=== PATIENT | female | born 1960 | race Caucasian/White ===

== ENCOUNTER 2018-02-07 09:32 | Observation (INO) | payer BC, SELFPAY ==
[2018-02-07] VITALS (20 sets, daily range): BP systolic 101–164; BP diastolic 44–96; PULSE 47–94; RESP 12–20; TEMP 36.2–37; O2SAT 94–100; BMI 23.3
--- NOTE | 2018-02-07 | PATH_ITS ---
[facility] Accession Number: [id number] . 01 Material submitted: . BILATERAL TUBES AND OVARIES . 02 Diagnosis: Bilateral Ovaries and Fallopian Tubes, Bilateral Salpingo-Oophorectomy: Low grade invasive serous carcinoma, Left Ovary Serous borderline tumor, bilateral ovaries. Hemorrhagic right ovary, consistent with torsion. Please see CAP Summary Data below. . PROCEDURE: Bilateral salpingo-oophorectomy. TUMOR SITE: Left Ovary. . LEFT OVARY: SPECIMEN INTEGRITY OF LEFT OVARY: Capsule intact. SPECIMEN INTEGRITY OF LEFT FALLOPIAN TUBE: Serosa intact. OVARIAN SURFACE INVOLVEMENT: Present. FALLOPIAN TUBE SURFACE INVOLVEMENT: Absent. TUMOR SIZE: Greatest dimension: 5.5 cm HISTOLOGIC TYPE: Serous carcinoma. HISTOLOGIC GRADE: Low grade. IMPLANTS: Not identified. OTHER TISSUE/ORGAN INVOLVEMENT: See RIGHT OVARY below. PERITONEAL/ASCITIC FLUID: Negative for malignancy, per report ([id number]). REGIONAL LYMPH NODES: No lymph nodes submitted. PATHOLOGIC STAGE CLASSIFICATION (AJCC 8th ed., 2017) Primary Tumor: pT2a Regional Lymph Nodes: pNX FIGO Stage: IIA . RIGHT OVARY: SPECIMEN INTEGRITY OF RIGHT OVARY: Capsule intact. SPECIMEN INTEGRITY OF RIGHT FALLOPIAN TUBE: Serosa intact. OVARIAN SURFACE INVOLVEMENT: Not involved. FALLOPIAN TUBE SURFACE INVOLVEMENT: Not involved. TUMOR SIZE: Greatest dimension: 11.5 cm HISTOLOGIC TYPE: Serous borderline tumor. IMPLANTS: Not identified. . ADDITIONAL FINDINGS: Right ovarian torsion. Endosalpingiosis (Right fallopian tube). L/02/13/2018 . 02 Comment: As part of routine machined parts quality inspector, this case was also reviewed by Dr. Hall who agrees with the diagnoses. Dr. Lyles discussed the results with Dr. Jose on 02/13/2018. . 02 Electronically signed: . Magi Lyles MD, Pathologist NPI- [id number] . 01 Gross description: . Received in formalin, labeled 2-Bilateral tubes / ovaries, are two ovaries (ovary #1-11.5 x 8.0 x 7.0 cm; ovary #2-5.5 x 4.2 x 2.3 cm) with attached fimbriated fallopian tubes (tube #1: length-5.2 cm, diameter-0.3 cm; tube #2: length-5.5 cm, diameter-0.3 cm). Ovary #1 is multi-cystic and contains yellow-orange clear gelatinous material and fluid. A scant amount of normal appearing ovarian parenchyma is identified. The serosa is smooth and shiny and purple/maroon in color. Ovary #2 is jaime-maldonado and the serosa has a focally rough irregular area (inked blue). The cut surface has maldonado-white solid areas and is partially cystic containing bright yellow clear gelatinous material and dark brown fluid. The fallopian tubes have a maldonado smooth and shiny serosa and maldonado unremarkable lumens. Section code: (A1, A2) ovary #1, serially sectioned, traffic representative; (A3, A4) ovary #2, serially sectioned, traffic representative; (A5) fallopian tube #1, serially sectioned, traffic representative; (A6) fimbria #1, bivalved, entirely submitted; (A7) fallopian tube #2, serially sectioned, traffic representative; (A8) fimbria #2, bivalved, entirely submitted; (A9-A11) Additional traffic representative sections of Ovary #2/Left Ovary, with irregular inked surface sampled in A9 and A10; (A12-A16) Additional traffic representative sections of Ovary #1/Right Ovary. Note: Per Dr. Jose, the larger hemorrhagic ovary is Right and the Smaller ovary is left. Note: Per the requisition, peritoneal fluid was also submitted to Cytology for analysis. ([id number]) /[facility] . 02 Pathologist provided ICD-10: C56.2 . 02 CPT . 450820 Performed at: 01 [facility] [address] [facility], [place], [place] [id number] MD Edgar Caicedo MD Phone: [phone] Performed at: 02 [facility] [address] [place] [id number] MD Keaton Yoo MD Phone: [phone]
[2018-02-07 09:53] LABS: Add Manual Diff / Slide Review NO; Basophils Percent Auto 1.2 % (0-2); Eosinophils Percent Auto 1.7 % (2-4); Hematocrit 43.2 % (36-46); Hemoglobin 14.7 g/dL (12.0-16.0); Lymphocytes Percent Auto 42.8 % (25-40); Mean Corpuscular Hemoglobin 31.2 PG (26-34); Mean Corpuscular Volume 91.7 fL (80-100); Neutrophils Absolute Auto 3400 /uL (3000-5900); Neutrophils Percent Auto 45.3 % (50-75); Platelet Count 330 X10^3/uL (150-400); Red Blood Cell Count 4.72 X10^6/uL (4.0-5.2); White Blood Cell Count 7.5 X10^3/uL (4.5-11.0)
--- NOTE | 2018-02-07 09:55 | DI.RAD.S_ITS ---
PROCEDURE: XR ACUTE ABDOMEN SERIES INDICATIONS: Abdominal pain TECHNIQUE: One view chest and two views of the abdomen were acquired. COMPARISON: None. FINDINGS: Surgical changes and devices: None. Chest: Lungs are clear. Heart size is normal. No pleural effusions. No pneumoperitoneum. Abdomen: Bowel gas pattern is normal. No suspicious calcifications. Visualized solid organ contours appear normal. Bones: No suspicious bony lesions. IMPRESSION: Source of abdominal pain is not seen. Dictated by: Shun Lenz M.D. on 02/07/2018 at 10:09 Approved by: Shun Lenz M.D. on 02/07/2018 at 10:25
[2018-02-07] MEDS: ONDANSETRON 4 MG/2 ML INJ IV (10:00)
[2018-02-07] MEDS: SODIUM CHLORIDE 0.9% 1,000 ML 150 ML IV ×2 (10:00→11:59)
[2018-02-07 10:03] LABS: Alanine Aminotransferase 78 IU/L (9-52); Albumin 4.7 g/dL (3.5-5.0); Albumin Globulin Ratio 1.7 (1.0-2.8); Alkaline Phosphatase 54 U/L (38-126); Aspartate Aminotransferase 52 IU/L (14-36); BUN Creatinine Ratio 21.3 (6-22); Bilirubin Total 0.9 mg/dL (0.2-1.3); Blood Urea Nitrogen 17 mg/dL (7-17); Calcium 9.4 mg/dL (8.4-10.2); Carbon Dioxide 25 mmol/L (22-32); Chloride 105 mmol/L (98-107); Estimated Glomerular Filt Rate > 60.0 mL/min (>60); Globulin 2.8 g/dL (1.7-4.1); Glucose 114 mg/dL (70-100); HEMOLYSIS 36 (0-50); Lipase 152 U/L (23-300); Potassium 3.5 mmol/L (3.4-5.1); Sodium 143 mmol/L (137-145); Total Protein 7.5 g/dL (6.3-8.2)
--- NOTE | 2018-02-07 10:13 | ED.ABDPAIN ---
HPI - Abdominal Pain General Chief Complaint: Abdominal Pain Stated Complaint: abdominal pain Time Seen by Provider: 02/07/18 09:33 Source: patient and family Mode of arrival: ambulatory Limitations: no limitations History of Present Illness HPI narrative: Patient presents to the emergency department with a chief complaint of severe right lower quadrant pain that started about 1 hr prior to arrival. She states it is radiated some down into her groin. She denies provocation or palliation. She denies any history of the same. MD complaint: abdominal pain Onset (ago): minute(s) Pain Consistency: constant Location: RLQ Severity: severe Severity scale (1-10): 10 Quality: stabbing Radiation: R flank Relieving factors: nothing Exacerbating factors: nothing Associated symptoms: nausea and vomiting Related Data Home Medications Medication Instructions Recorded Confirmed ondansetron [Zofran ODT] 4 mg SUBLINGUAL BEDTIME PRN 02/07/18 sumatriptan PRN 02/07/18 zolpidem [Ambien] PRN 02/07/18 Allergies Allergy/AdvReac Type Severity Reaction Status Date / Time amoxicillin [AMOXICILLIN] Allergy Unknown Verified 02/07/18 10:11 Sulfa (Sulfonamide Allergy Verified 02/07/18 09:45 Antibiotics) Review of Systems Review of Systems All systems reviewed & are unremarkable except as noted in HPI and below Constitutional Denies chills, Denies fever(s), Denies lethargy and Denies weakness Eyes Denies change in vision, Denies eye discharge, Denies irritation and Denies loss of vision ENT Ears, Nose, Mouth, and Throat: Denies change in voice, Denies neck pain and Denies sore throat Cardiovascular Denies chest pain, Denies irregular heart rhythm, Denies lightheadedness, Denies palpitations, Denies dyspnea, Denies dyspnea on exertion and Denies orthopnea Respiratory Denies cough, Denies dyspnea, Denies dyspnea on exertion and Denies wheezing Gastrointestinal Gastrointestinal: Reports abdominal pain, Denies change in bowel habits, Denies diarrhea, Reports nausea and Reports vomiting Genitourinary Denies hematuria, Denies flank pain, Denies urinary incontinence and Denies urinary urgency Musculoskeletal Denies neck pain Integumentary/Breasts Denies pruritus, Denies erythema, Denies rash and Denies wounds Neurologic Denies confusion, Denies loss of vision and Denies weakness Psychiatric Denies anxiety, Denies confusion, Denies depression, Denies homicidal ideation and Denies suicidal ideation Endocrine Denies palpitations Hematologic/Lymphatic Denies easy bruising Allergic/Immunologic Denies wheezing [facility] Medical History Diverticulitis large intestine (Acute) Surgical History H/O dilation and curettage (Acute) History of tonsillectomy (Acute) Social History household members: spouse Smoking Status: Never smoker Exam Narrative Exam Narrative: 49-year-old female obviously in pain, clutching her right lower quadrant Initial Vital Signs Initial Vital Signs: Vital Signs Temperature 98.6 F 02/07/18 09:42 Pulse Rate 65 02/07/18 09:42 Respiratory Rate 20 02/07/18 09:42 Blood Pressure 161/91 H 02/07/18 09:42 Pulse Oximetry 100 02/07/18 09:42 Const General: cooperative and well developed Nutritional Appearance: well nourished Orientation: alert, awake, oriented x3 and not confused HENMT Head: normocephalic and atraumatic Ears: external ears normal and TM's normal bilaterally Nose: external nose normal and No nasal discharge Face and sinus: sinuses nontender, face symmetric, no sinus tenderness and No dry mucous membranes Mouth: oral mucosae normal and moist mucous membranes Teeth and gingiva: dentition normal Throat: tonsils normal and uvula midline Eyes General: appearance normal, both eyes and all related structures Eyelids: eyelids normal Conjunctivae: conjunctivae normal Sclera: sclerae normal Pupils: PERRL EOM: EOM intact bilaterally Neck Neck: normal visual inspection, trachea midline, No lymphadenopathy, No midline deformity and No JVD Lymphatic: No lymphedema Chest Chest: normal inspection of the chest Resp Effort & Inspection: normal respiratory effort, able to speak in complete sentences, no respiratory distress and no use of accessory muscles Auscultation: clear to auscultation bilaterally, no rales, no rhonchi and no wheezes Cardio Rate: regular rate Rhythm: regular rhythm Heart Sounds: no click, no gallops, no murmurs and no rubs Pulses: normal peripheral pulses GI Inspection: non-distended Palpation: soft, no hepatosplenomegaly, No guarding, No pulsatile mass and No tender Auscultation: normal bowel sounds Other: Her pain is not reproducible with palpation Back/Spine/Pelvis Back: No CVA tenderness Cervical Spine: cervical ROM normal and No pain with cervical ROM Thoracic/Lumbar Spine: thoracic and lumbar spine normal to inspection Skin General: no rashes or lesions noted, No jaundice and No petechiae Neuro General: alert, oriented x3, gait normal and no focal motor deficits Speech: speech normal Extrem General: full ROM, no clubbing, cyanosis or edema, no pedal edema and no calf tenderness Psych Appearance: well kempt Mental Status: mental status grossly normal Attitude: cooperative Thought Content: normal and suicidality Judgment: judgment good Course Orders Ordered: ED Orders 02/07/18 09:45 Complete Blood Count AUTO DIFF Stat Comprehensive Metabolic Panel Stat Lipase Stat 02/07/18 09:55 XR acute abdomen series Stat 02/07/18 10:36 CT abdomen pelvis w con Stat 02/07/18 11:15 US pelvic complete Stat 02/07/18 12:30 Cancer Antigen 125 Stat Fentanyl (Sublimaze) 50 mcg IV Q5MIN YAHIR Stop: 02/12/18 12:01 Fentanyl (Sublimaze) 100 mcg IV Q5MIN PRN PRN Reason: Pain, Mild Hydromorphone HCl (Dilaudid) 1 mg IM Q5MIN PRN PRN Reason: Pain, Severe Hydroxyzine HCl (Vistaril) 25 mg IM PRN PRN PRN Reason: Pain, Mild Sodium Chloride (Normal Saline 0.9%) 1,000 mls @ 150 mls/hr IV CONT YAHIR Last Infusion: 02/07/18 11:23 Dose: 0 mls/hr Admin: 02/07/18 10:00 Dose: 150 mls/hr Sodium Chloride (Normal Saline 0.9%) 1,000 mls @ 150 mls/hr IV CONT YAHIR Last Admin: 02/07/18 11:59 Dose: 150 mls/hr Lactated Ringer's (Lactated Ringers) 1,000 mls @ 42 mls/hr IV CONT YAHIR Last Admin: 02/07/18 14:35 Dose: 42 mls/hr Infusion: 02/07/18 14:35 Dose: 42 mls/hr Admin: 02/07/18 12:37 Dose: 42 mls/hr Lactated Ringer's (Lactated Ringers) 1,000 mls @ 100 mls/hr IV CONT YAHIR Meperidine HCl (Demerol) 25 mg IV Q5MIN PRN PRN Reason: Pain and shivering Metoclopramide HCl (Reglan) 10 mg IV NOW PRN PRN Reason: Nausea And Vomiting Ondansetron HCl (Zofran) 4 mg IV Q4HR PRN PRN Reason: Nausea And Vomiting Last Admin: 02/07/18 10:00 Dose: 4 mg Ondansetron HCl (Zofran) 4 mg IV NOW PRN PRN Reason: Nausea And Vomiting Discontinued Medications Bupivacaine HCl/Epinephrine Bitart (Sensorcaine 0.5% W/ Epi (Pf)) 30 ml INJ NOW ONE Stop: 02/07/18 13:34 Last Admin: 02/07/18 13:34 Dose: 30 ml Hydromorphone HCl (Dilaudid) 1 mg IV NOW ONE Stop: 02/07/18 10:37 Last Admin: 02/07/18 10:42 Dose: 1 mg Hydromorphone HCl (Dilaudid) 1 mg IV NOW ONE Stop: 02/07/18 11:35 Famotidine (Pepcid) 20 mg in 50 mls @ 200 mls/hr IV NOW ONE Stop: 02/07/18 12:04 Last Infusion: 02/07/18 11:59 Dose: 0 mls/hr Admin: 02/07/18 11:57 Dose: 200 mls/hr Cefazolin Sodium/Dextrose (Ancef) 2 gm in 100 mls @ 200 mls/hr IV NOW ONE Stop: 02/07/18 12:49 Last Infusion: 02/07/18 12:50 Dose: 0 mls/hr Admin: 02/07/18 12:36 Dose: 200 mls/hr Ketorolac Tromethamine (Toradol) 30 mg IV NOW ONE Stop: 02/07/18 10:14 Last Admin: 02/07/18 10:21 Dose: 30 mg Lidocaine HCl (Xylocaine 2%) 4.8 ml 0.075 ml/kg (4.8 ml) IV NOW ONE Stop: 02/07/18 09:59 Last Admin: 02/07/18 10:16 Dose: 4.8 ml Metoclopramide HCl (Reglan) 10 mg IV NOW ONE Stop: 02/07/18 11:51 Last Admin: 02/07/18 11:57 Dose: 10 mg Reevaluation(s) Reevaluation #1: No improvement after Toradol, lidocaine drip ordered Time: 10:15 Reevaluation #2: No improvement after lidocaine drip. X-ray and labs normal. CT and Dilaudid ordered Time: 10:41 Consultations Consultation #1: Called to Dr. Jose with [facility] immediately upon receipt of CT findings for fear of possible torsion. Ultrasound is in the room. Dr. Jose is sending anesthesia down for preop Time: 11:33 Vital Signs - 8 hr 02/07/18 09:42 02/07/18 10:41 02/07/18 11:00 Temperature 98.6 F Pulse Rate 65 60 47 L Respiratory Rate 20 16 Blood Pressure 161/91 H Blood Pressure [Left Arm] 150/88 H 164/85 H Pulse Oximetry 100 100 97 02/07/18 11:44 02/07/18 12:00 02/07/18 12:01 Temperature Pulse Rate 56 L 49 L 57 L Respiratory Rate 16 18 Blood Pressure Blood Pressure [Left Arm] 148/96 H 148/68 H 148/68 H Pulse Oximetry 100 96 98 02/07/18 12:24 Temperature 97.5 F L Pulse Rate 94 H Respiratory Rate Blood Pressure 155/84 H Blood Pressure [Left Arm] Pulse Oximetry 94 MDM - Abdominal Pain Differential Diagnosis Differential diagnosis: Likely abdominal pain, calculus of kidney, constipation and small bowel obstruction Medical Records Attestation: I reviewed the patient's medical records. Lab Data Attestation: I reviewed the patient's lab results. Result diagrams: 02/07/18 09:45 02/07/18 09:45 Lab Results 02/07/18 02/07/18 02/07/18 Range/Units 09:45 09:45 12:30 WBC 7.5 (4.5-11.0) X10^3/uL RBC 4.72 (4.0-5.2) X10^6/uL Hgb 14.7 (12.0-16.0) g/dL Hct 43.2 (36-46) % MCV 91.7 (80-100) fL MCH 31.2 (26-34) PG MCHC 34.0 (30-36) % RDW 13.0 (11.6-14.8) % Plt Count 330 (150-400) X10^3/uL Neut % (Auto) 45.3 L (50-75) % Lymph % (Auto) 42.8 H (25-40) % [place] % (Auto) 9.0 (3-14) % Eos % (Auto) 1.7 L (2-4) % Baso % (Auto) 1.2 (0-2) % Neut # (Auto) 3400 (9334-8214) /uL Sodium 143 (137-145) mmol/L Potassium 3.5 (3.4-5.1) mmol/L Chloride 105 (98-107) mmol/L Carbon Dioxide 25 (22-32) mmol/L BUN 17 (7-17) mg/dL Creatinine 0.80 (0.52-1.04) mg/dL Estimated GFR > 60.0 (>60) mL/min BUN/Creatinine Ratio 21.3 (6-22) Glucose 114 H (70-100) mg/dL Calcium 9.4 (8.4-10.2) mg/dL Total Bilirubin 0.9 (0.2-1.3) mg/dL AST 52 H (14-36) IU/L ALT 78 H (9-52) IU/L Alkaline Phosphatase 54 (38-126) U/L Total Protein 7.5 (6.3-8.2) g/dL Albumin 4.7 (3.5-5.0) g/dL Globulin 2.8 (1.7-4.1) g/dL Albumin/Globulin Ratio 1.7 (1.0-2.8) Lipase 152 (23-300) U/L CA 125 Antigen 30 (0-35) U/mL Imaging Data Pelvic US: Attestation: I personally reviewed and interpreted this imaging study as follows: Radiologist's impression: PROCEDURE: US PELVIC COMPLETE INDICATIONS: RIGHT OVARIAN MASS ON CT; SEVERE PAIN; POSSIBLE TORSION TECHNIQUE: Real-time scanning was performed of the pelvic organs, with image documentation. Additional endovaginal scanning was necessary due to incomplete visualization of the adnexal and endometrial structures by transabdominal scanning. COMPARISON: None. FINDINGS: Transabdominal scanning: Limited scanning through the kidneys shows no hydronephrosis. No pathologic free abdominal or pelvic fluid. Endovaginal scanning: Uterus: Uterus is normal in size at 3.3 x 4.7 x 5.8 cm. The endometrium measures 3.3 mm in combined thickness. Ovaries: The right ovary cannot be located by both transabdominal or transvaginal scanning. The left ovary appears enlarged overall measuring 6.8 x 7.2 x 1.4 cm and contains a complex avascular cysts the largest of which measures up to 6.7 x 5.0 6.1 cm. No identifiable arterial or venous flow can be seen within the right ovary by both transabdominal and transvaginal scanning. IMPRESSION: Nonvisualization of the right ovary, normal appearance of the uterus. Enlargement of the left ovary is present associated with at least 2 complex but avascular cysts the largest of which measures up to 6.7 cm. The overall right ovarian dimension is up to 7.2 x 6.8 x 11.4 cm and arterial and venous flow could not be identified at this ovary despite both transabdominal and transvaginal scanning. Severe left-sided pelvic pain, suspect ovarian torsion. Dictated by: Shun Lenz M.D. on 02/07/2018 at 12:08 Approved by: Shun Lenz M.D. on 02/07/2018 at 12:11 CT scan - abdomen: Radiologist's impression: PROCEDURE: CT ABDOMEN PELVIS W CON INDICATIONS: severe RLQ pain TECHNIQUE: After the administration of intravenous contrast, 5 mm thick sections acquired from the diaphragm to the symphysis. 5 mm coronal and sagittal reformats were acquired. For radiation dose reduction, the following was used: automated exposure control, adjustment of mA and/or kV according to patient size. COMPARISON: [facility], CR, XR ACUTE ABDOMEN SERIES, 02/07/2018, 9:54. FINDINGS: Image quality: Excellent. ABDOMEN: Lung bases: Lung bases are clear. Heart size is normal. Solid organs: Liver is normal in size with diffuse decreased attenuation compatible with fatty infiltration, mild sparing around the gallbladder. Gallbladder appears clear. Biliary system is non dilated. Pancreas enhances normally. Spleen is normal in size and enhancement. No adrenal nodules. Kidneys demonstrate normal size and enhancement, without hydronephrosis. Peritoneum and bowel: Bowel loops demonstrate normal wall thickness and caliber. The appendix is not seen. The sigmoid diverticulosis without diverticulitis. No free fluid or air. Nodes and vessels: No retroperitoneal or mesenteric adenopathy by size criteria. Aorta and inferior vena cava are normal in size. Miscellaneous: No ventral hernias. PELVIS: Genitourinary: Bladder wall thickness is normal. The right adnexa contains a thin-walled, septated cystic mass measuring 7.0 x 10.0 cm in diameter by 7.1 cm craniocaudal. Solid components are present in the posterior aspect of the mass, likely ovarian tissue measuring 2.9 x 4.3 cm. The left ovary is heterogeneous and measures 2.7 x 5.2 cm. The uterus is unremarkable. There is no mesenteric fat stranding within the pelvis. No free fluid. Miscellaneous: No inguinal hernias or adenopathy. Bones: No suspicious bony lesions. Disc degeneration and reactive sclerosis L4-5. No vertebral body compression fractures. IMPRESSION: 1. Cystic mass right ovary, with suspect for cystadenoma. Possibility of acute torsion cannot be excluded and pelvic ultrasound is suggested. Findings could represent cystadenocarcinoma. Surgical consultation recommended. 2. Heterogeneous, mildly enlarged left ovary. 3. Sigmoid diverticulosis without diverticulitis. Appendix is not seen and could be surgically absent. No annie-cecal inflammation evident. 4. Hepatic steatosis. Note: Findings were called to Dr. Rider in the ED at 1115 hrs. on 02/07/2018 Dictated by: Po Hernandez M.D. on 02/07/2018 at 11:05 Approved by: Po Hernandez M.D. on 02/07/2018 at 11:17 Discharge Plan Departure Patient Disposition: Admitted As Inpatient Clinical Impression: Ovarian torsion Discharge Date/Time: 02/07/18 12:33 Interventions: ED Discharge Assessment Last Done: 02/07/18 12:20 Admit Date/Time: 02/07/18 12:15 Admit Provider: Jacque Jose
[2018-02-07] MEDS: LIDOCAINE 2% 20 ML INJ 4.8 ML IV (10:16)
[2018-02-07] MEDS: KETOROLAC 60 MG/2 ML VIAL 30 MG IV (10:21)
--- NOTE | 2018-02-07 10:36 | DI.CT.S_ITS ---
PROCEDURE: CT ABDOMEN PELVIS W CON INDICATIONS: severe RLQ pain TECHNIQUE: After the administration of intravenous contrast, 5 mm thick sections acquired from the diaphragm to the symphysis. 5 mm coronal and sagittal reformats were acquired. For radiation dose reduction, the following was used: automated exposure control, adjustment of mA and/or kV according to patient size. COMPARISON: [facility], CR, XR ACUTE ABDOMEN SERIES, 02/07/2018, 9:54. FINDINGS: Image quality: Excellent. ABDOMEN: Lung bases: Lung bases are clear. Heart size is normal. Solid organs: Liver is normal in size with diffuse decreased attenuation compatible with fatty infiltration, mild sparing around the gallbladder. Gallbladder appears clear. Biliary system is non dilated. Pancreas enhances normally. Spleen is normal in size and enhancement. No adrenal nodules. Kidneys demonstrate normal size and enhancement, without hydronephrosis. Peritoneum and bowel: Bowel loops demonstrate normal wall thickness and caliber. The appendix is not seen. The sigmoid diverticulosis without diverticulitis. No free fluid or air. Nodes and vessels: No retroperitoneal or mesenteric adenopathy by size criteria. Aorta and inferior vena cava are normal in size. Miscellaneous: No ventral hernias. PELVIS: Genitourinary: Bladder wall thickness is normal. The right adnexa contains a thin-walled, septated cystic mass measuring 7.0 x 10.0 cm in diameter by 7.1 cm craniocaudal. Solid components are present in the posterior aspect of the mass, likely ovarian tissue measuring 2.9 x 4.3 cm. The left ovary is heterogeneous and measures 2.7 x 5.2 cm. The uterus is unremarkable. There is no mesenteric fat stranding within the pelvis. No free fluid. Miscellaneous: No inguinal hernias or adenopathy. Bones: No suspicious bony lesions. Disc degeneration and reactive sclerosis L4-5. No vertebral body compression fractures. IMPRESSION: 1. Cystic mass right ovary, with suspect for cystadenoma. Possibility of acute torsion cannot be excluded and pelvic ultrasound is suggested. Findings could represent cystadenocarcinoma. Surgical consultation recommended. 2. Heterogeneous, mildly enlarged left ovary. 3. Sigmoid diverticulosis without diverticulitis. Appendix is not seen and could be surgically absent. No annie-cecal inflammation evident. 4. Hepatic steatosis. Note: Findings were called to Dr. Rider in the ED at 1115 hrs. on 02/07/2018 Dictated by: Po Hernandez M.D. on 02/07/2018 at 11:05 Approved by: Po Hernandez M.D. on 02/07/2018 at 11:17
[2018-02-07] MEDS: HYDROMORPHONE 0.5 MG INJ 1 MG IV (10:42)
--- NOTE | 2018-02-07 11:15 | DI.US.S_ITS ---
PROCEDURE: US PELVIC COMPLETE INDICATIONS: RIGHT OVARIAN MASS ON CT; SEVERE PAIN; POSSIBLE TORSION TECHNIQUE: Real-time scanning was performed of the pelvic organs, with image documentation. Additional endovaginal scanning was necessary due to incomplete visualization of the adnexal and endometrial structures by transabdominal scanning. COMPARISON: None. FINDINGS: Transabdominal scanning: Limited scanning through the kidneys shows no hydronephrosis. No pathologic free abdominal or pelvic fluid. Endovaginal scanning: Uterus: Uterus is normal in size at 3.3 x 4.7 x 5.8 cm. The endometrium measures 3.3 mm in combined thickness. Ovaries: The right ovary cannot be located by both transabdominal or transvaginal scanning. The left ovary appears enlarged overall measuring 6.8 x 7.2 x 1.4 cm and contains a complex avascular cysts the largest of which measures up to 6.7 x 5.0 6.1 cm. No identifiable arterial or venous flow can be seen within the right ovary by both transabdominal and transvaginal scanning. IMPRESSION: Nonvisualization of the right ovary, normal appearance of the uterus. Enlargement of the left ovary is present associated with at least 2 complex but avascular cysts the largest of which measures up to 6.7 cm. The overall right ovarian dimension is up to 7.2 x 6.8 x 11.4 cm and arterial and venous flow could not be identified at this ovary despite both transabdominal and transvaginal scanning. Severe left-sided pelvic pain, suspect ovarian torsion. Dictated by: Shun Lenz M.D. on 02/07/2018 at 12:08 Approved by: Shun Lenz M.D. on 02/07/2018 at 12:11
[2018-02-07] MEDS: FAMOTIDINE 20 MG/50 ML PIGGYBACK 200 MG IV (11:57)
[2018-02-07] MEDS: METOCLOPRAMIDE 10 MG/2 ML INJ IV (11:57)
--- NOTE | 2018-02-07 12:26 | PM.PREOP ---
Pre-operative Note Interval Note Pre-op Check: History & Physical exam performed today
--- NOTE | 2018-02-07 12:33 | P.HP_ITS ---
History of Present Illness Date Patient Seen: 02/07/18 Time Patient Seen: 12:27 Chief complaint: abdominal pain Narrative: Patient is a 57-year-old 3 para 2 with a complex cystic mass on the right ovary and suspected ovarian torsion Patient History Medical History Diverticulitis large intestine (Acute) Surgical History H/O dilation and curettage (Acute) History of tonsillectomy (Acute) Family & Social History Safety & Behavioral: Feels Safe in Current Yes Environment Been Physically Hurt or No Threatened By a Person Tobacco & Substance use: Smoking Status Never smoker Substance Use Type does not use Meds Home Medications Medication Instructions Recorded Confirmed Type ondansetron [Zofran ODT] 4 mg SUBLINGUAL BEDTIME PRN 02/07/18 History sumatriptan PRN 02/07/18 History zolpidem [Ambien] PRN 02/07/18 History Allergies Allergy/AdvReac Type Severity Reaction Status Date / Time amoxicillin [AMOXICILLIN] Allergy Unknown Verified 02/07/18 10:11 Sulfa (Sulfonamide Allergy Verified 02/07/18 09:45 Antibiotics) Review of Systems Constitutional Constitutional: Reports anorexia Eyes Eyes: Reports system reviewed; no additional complaints, except as documented ENT Ears, Nose, Mouth, and Throat: Yes system reviewed; no additional complaints, except as documented Cardiovascular Cardiovascular: Reports system reviewed; no additional complaints, except as documented Respiratory Respiratory: Reports system reviewed and no additional complaints, except as documented Gastrointestinal Gastrointestinal: Reports abdominal pain, Reports nausea and Reports vomiting Genitourinary Genitourinary: Reports system reviewed and no additional complaints, except as documented Musculoskeletal Musculoskeletal: Reports system reviewed; no additional complaints, except as documented Integumentary/Breasts Skin/Breast: Reports system reviewed and no additional complaints, except as documented Neurologic Neurologic: Reports system reviewed and no additional complaints, except as documented Psychiatric Psychiatric: Reports system reviewed and no additional complaints, except as documented Endocrine Endocrine: Reports system reviewed and no additional complaints, except as documented Hematologic/Lymphatic Hematologic/Lymphatic: Reports system reviewed and no additional complaints, except as documented Allergic/Immunologic Allergic/Immunologic: Reports system reviewed and no additional complaints, except as documented Exam Vital Signs (past 8 hours): Vital Signs - 8 hr 3 02/07/18 09:42 02/07/18 10:41 02/07/18 11:00 Temperature 98.6 F Pulse Rate 65 60 47 L Respiratory Rate 20 16 Blood Pressure 161/91 H Blood Pressure [Left Arm] 150/88 H 164/85 H Pulse Oximetry 100 100 97 3 02/07/18 11:44 02/07/18 12:00 02/07/18 12:01 Temperature Pulse Rate 56 L 49 L 57 L Respiratory Rate 16 18 Blood Pressure Blood Pressure [Left Arm] 148/96 H 148/68 H 148/68 H Pulse Oximetry 100 96 98 Pulse Oximetry 98 Oxygen Delivery Method Room Air Oxygen Flow Rate 0 Narrative Exam Narrative: HEENT: No thyromegaly, no anterior cervical or supraclavicular lymphadenopathy. Lungs:Clear to auscultation bilaterally, no wheezes. Cardiovascular: Regular rate and rhythm, no murmurs, rubs, or gallops. Abdomen: No scars. No hepatosplenomegaly. No masses palpable. External genitalia: Normal Vagina: Normal Cervix: Normal Bimanual exam: [ Week size uterus. Mobile.] Rectal: No masses. Ultrasound: 11 cm complex cystic mass on the right ovary with no flow into the ovary. Objective Labs Result Diagrams: 02/07/18 09:45 02/07/18 09:45 Labs: Laboratory Results - last 24 hr 02/07/18 02/07/18 09:45 09:45 WBC 7.5 RBC 4.72 Hgb 14.7 Hct 43.2 MCV 91.7 MCH 31.2 MCHC 34.0 RDW 13.0 Plt Count 330 Neut % (Auto) 45.3 L Lymph % (Auto) 42.8 H Bryan % (Auto) 9.0 Eos % (Auto) 1.7 L Baso % (Auto) 1.2 Neut # (Auto) 3400 Sodium 143 Potassium 3.5 Chloride 105 Carbon Dioxide 25 BUN 17 Creatinine 0.80 Estimated GFR > 60.0 BUN/Creatinine Ratio 21.3 Glucose 114 H Calcium 9.4 Total Bilirubin 0.9 AST 52 H ALT 78 H Alkaline Phosphatase 54 Total Protein 7.5 Albumin 4.7 Globulin 2.8 Albumin/Globulin Ratio 1.7 Lipase 152 Assessment & Plan (1) Ovarian mass, right: Current visit: Yes Status: Acute Plan: Assessment/Plan Narrative: Assessment: 57-year-old 3 para 2 with a complex right ovarian mass and suspected right ovarian torsion Plan: Laparoscopic right salpingo-oophorectomy and left salpingectomy The risks, benefits, and alternatives to the procedure were explained to the patient. The risks including bleeding, infection, injury to the bowel, bladder , or ureters. She understands that there is a possibility of an open procedure. A full capital P AR-Q was held and consent form was signed
[2018-02-07] MEDS: CEFAZOLIN 2 GM/100 ML FROZ.PIGGY IV (12:36)
[2018-02-07] MEDS: LACTATED RINGERS 1,000 ML 42 ML IV ×2 (12:37→14:35)
--- NOTE | 2018-02-07 13:07 | SUR.OPER ---
Lithotomy on padded OR bed, head on pillow, right arm secured on padded arm board at <90 degrees abduction, left arm tucked at side with gel pad. Legs secured in padded yellow fins stirrups.
[2018-02-07 13:26] LABS: Cancer Antigen 125 30 U/mL (0-35)
[2018-02-07] MEDS: BUPIVACAINE 0.5% W/ EPI (PF) 30 ML VIAL INJ (13:34)
--- NOTE | 2018-02-07 14:39 | SUR.OPER ---
in and out catheter at 0517
[2018-02-07] MEDS: MEPERIDINE 25 MG/ML SYRINGE IV (15:59)
--- NOTE | 2018-02-07 16:23 | SUR.PHASEI ---
Uneventful PACU stay. Some discomfort yto throat and urge to void but abdomen without pain. Used iced water and honey with some relief. All dressings dry and intact. Shivering late in PACU stay and responsive to Meperidine.
--- NOTE | 2018-02-07 16:45 | PC.NURSE ---
patient up to floor at 1610, a&ox4, iv catheter and woodward catheter in place and draining to gravity. 99% on ra, patient denies nausea, sob, dizziness. cms intact. bowel tones are absent at this time, abd is tender. dressings are c/d/i. lung sounds are clear, heart rate is regular. dwayne is 4/10 at this time. is at bedside, ba active, call light in reach and encouraged to use. encouraged not to get up herself. will continue to monitor.
[2018-02-07] MEDS: DEXTROSE 5%-LACTATED RINGERS 1,000 ML 100 ML IV (17:04)
[2018-02-07] MEDS: OXYCODONE/ACETAMINOPHEN 5/325 TABLET 2 TAB PO ×2 (17:04→21:56)
[2018-02-07] MEDS: DOCUSATE 250 MG CAPSULE PO (20:21)
[2018-02-08] VITALS: BP 98/54; PULSE 60; RESP 16; TEMP 37.4; O2SAT 96
--- NOTE | 2018-02-08 01:15 | PC.NURSE ---
0050 Pt. sound asleep, snoring lightly, will monitor & assess when she wakes up.
[2018-02-08] MEDS: OXYCODONE/ACETAMINOPHEN 5/325 TABLET 2 TAB PO ×3 (03:29→13:15)
[2018-02-08] MEDS: DEXTROSE 5%-LACTATED RINGERS 1,000 ML 100 ML IV (03:32)
[2018-02-08 05:43] VITALS: BP 95/60; PULSE 51; RESP 16; TEMP 37; O2SAT 96
[2018-02-08 06:06] LABS: Add Manual Diff / Slide Review NO; Basophils Percent Auto 0.1 % (0-2); Eosinophils Percent Auto 0.1 % (2-4); Hematocrit 33.1 % (36-46); Hemoglobin 11.1 g/dL (12.0-16.0); Lymphocytes Percent Auto 9.7 % (25-40); Mean Corpuscular HGB Conc 33.7 % (30-36); Mean Corpuscular Volume 92.1 fL (80-100); Monocytes Percent Auto 6.2 % (3-14); Neutrophils Absolute Auto 9700 /uL (3000-5900); Neutrophils Percent Auto 83.9 % (50-75); Platelet Count 221 X10^3/uL (150-400); Red Blood Cell Count 3.59 X10^6/uL (4.0-5.2); Red Cell Distribution Width 13.1 % (11.6-14.8); White Blood Cell Count 11.5 X10^3/uL (4.5-11.0)
[2018-02-08 07:45] VITALS: BP 97/60; PULSE 64; RESP 15; TEMP 37.4; O2SAT 98
[2018-02-08] MEDS: DOCUSATE 250 MG CAPSULE PO (08:45)
[2018-02-08] MEDS: BENZOCAINE/MENTHOL 1 LOZ PKT 1 EACH PO (09:54)
[2018-02-08 11:00] VITALS: BP 100/66; PULSE 62; RESP 16; TEMP 37.1; O2SAT 98
--- NOTE | 2018-02-08 12:26 | CM.DANOTE ---
DCP: assessment: case received, EMR reviewed and met with pt. Introduced self and role. Pt is a 57 year old female who admitted yesterday through the ER and then to care of Dr. Jose. She was taken to surgery for a gynecological procedure (OP report not currently available). Payer: OLGA Caruso PCP: Dr. Siomara Denny She has been ok'd for d/c to home today and will followup with Dr. Jose in clinic. 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 She reports her friend will be here at 1330 to take her home. No concerns re the d/c today are identified.
--- NOTE | 2018-02-09 12:21 | P.PN_ITS ---
Subjective Date Patient Seen: 02/08/18 Time Patient Seen: 08:30 Interval history: Patient is a 57-year-old postop day # 1 status post a laparoscopic bilateral salpingo-oophorectomy for a torsed right ovary an and an abnormal-looking left ovary. Patient's pain is well controlled. No nausea or vomiting. Exam Vital Signs (past 8 hours): Pulse Oximetry 98 Oxygen Delivery Method Room Air Oxygen Flow Rate 0 Narrative Exam Narrative: Generally: Patient is sitting up in bed, no acute distress Cardiovascular: Regular rate and rhythm Lungs: Clear to auscultation bilaterally Abdomen: Dried blood under the umbilical dressing. Otherwise no redness or drainage. Extremities: SCDs in place Objective Labs Result Diagrams: 02/08/18 05:43 02/07/18 09:45 Assessment & Plan Post-op (1) Status post bilateral salpingo-oophorectomy (BSO): Current Visit: No Status: Acute Assessment and plan: Assessment: 57-year-old postop day # 1 Status post laparoscopic bilateral salpingo- oophorectomy doing very well Plan: Discharge to home Follow-up 2 weeks for incision check Prescription for Percocet given Patient to call with fever, chills, or redness or drainage around the incision Postoperative Procedures Operation Date: 02/07/18 11:45 Actual Procedures Side Surgeon p Laparoscopic bilateral salpingectomy and oopherectomy Bilateral Jacque Jose MD Time Spent With Patient less than 15 minutes
--- NOTE | 2018-02-09 12:28 | PM.DS.1 ---
History of Present Illness Chief complaint: R Ovary Torsion Narrative: Patient is a 57-year-old 3 para 2 with a complex cystic mass on the right ovary and suspected ovarian torsion She underwent a laparoscopic bilateral salpingo-oophorectomy without complication Discharge Providers Date of admission: 02/07/18 12:15 Primary care physician: Zahira Denny MD Discharge provider: Jacque Jose MD Summary Discharge Diagnosis: Right ovarian torsion Abnormal left ovary Hospital Course: Patient was admitted through the emergency room for a right ovarian torsion. She was taken urgently to the operating room and underwent a laparoscopic bilateral salpingo-oophorectomy secondary to the torsion of the right ovary and also an abnormal looking left ovary. Her postoperative course was unremarkable. She is tolerating a diet. She voided without difficulty. Status at Discharge Functional status at discharge: independent ambulation Overall status at discharge: patient is progressing back to baseline Time Spent with Patient Less than 30 minutes Exam Vital Signs (past 8 hours): Pulse Oximetry 98 Oxygen Delivery Method Room Air Oxygen Flow Rate 0 Objective Labs Result Diagrams: 02/08/18 05:43 02/07/18 09:45 Labs: CA-125 30 Discharge Plan Discharge Plan Patient Disposition: Home, Self-Care Discharge comment: Call with fever, chills, redness or drainage around incisions.Remove outer plastic dressings after first shower. Leave steri strips in place. Remove lower dressing on Saturday Provider Discharge Instructions Diet: Diet as Tolerated Activity: No heavy lifting Wound Care Report to your healthcare provider any signs of infection, such as:: chills, fever and unusual drainage Dressing: Remove outer plastic dressings and guaze after first shower Leave steri strips in place Remove lower dressing on Saturday Discharge Data Primary Care Provider: Zahira Denny Attending Provider: Jacque Jose Admit Date/Time: 02/07/18 12:15 Discharges patient from system. Discharge Date/Time: 02/08/18 13:15
[2018-02-11 20:06] LABS: Human HE4 Antigen 41 pmol/L
--- NOTE | 2018-02-26 15:43 | PM.GYNOP.1 ---
Operative Date/Time/Diagnoses - Date of procedure: 02/07/18 Time of procedure: 15:43 Pre-op diagnosis: Torsion of the right ovary Post-op diagnosis: same Procedure: Procedures Operation Date: 02/07/18 11:45 Actual Procedures Side Surgeon p Laparoscopic bilateral salpingectomy and oopherectomy Bilateral Jacque Jose MD Indications: Torsion of the right ovary Right lower quadrant pain Surgeon: Jacque Jose Billing Machine Operator: Ty Cisneros Anesthesia Type: General Operative Notes Findings: 12 cm torsed right ovary (x3) 3-4 cm left ovary with irregular serosa Normal liver and gallbladder Normal tubes bilaterally Normal omentum Normal colon Closure Type: primary Specimen(s): left tube & ovary, right tube & ovary and washings (Pelvic) Applied: catheter (Removed at the end of the case) Estimated blood loss (mL): 7 Blood products transfused: none Procedure in detail: After informed consent was obtained, the patient was taken to the operating room where she was placed in the dorsal supine position. After adequate general tracheal anesthesia was achieved, she was placed in the dorsal lithotomy position, and prepped and draped in the usual sterile fashion. A time-out was performed. A bivalve speculum was placed into the vagina, and the anterior lip of the cervix grasped with a single-tooth tenaculum. Cervical os was sequentially dilated until the Zumi uterine manipulator could pass easily into the endometrial cavity. The single-tooth tenaculum was removed from the anterior lip of the cervix. The bivalve speculum was removed from the vagina. Attention was then turned to the vagina where 6 cc of 0.5% Marcaine with epinephrine were injected in the umbilical fold. A 5 mm incision was made. The Veress needle was placed into the peritoneal cavity, and its placement was confirmed by aspiration and drop test. The abdominal cavity was insufflated with 3.8 L of CO2. The Veress needle was removed, and a 5 mm trocar was placed without difficulty. 2 other incisions were made in line with the umbilicus but 4 cm lateral from the midline. Using a Lukens trap, pelvic washings were obtained. Two 5 mm trocars were placed under direct visualization with care not to rupture the right ovary. The right ovary was un torsed using a probe. The utero-ovarian ligament was grasped with an atraumatic grasper. The infundibulopelvic ligament on the right side was cauterized and cut with the PlasmaKinetic. Hemostasis was achieved. The utero-ovarian vessel was then cauterized and cut with the PlasmaKinetic. Hemostasis was achieved. The right tube and ovary were placed into the anterior cul-de-sac. Attention was then turned to the left side where the left utero-ovarian ligament was grasped with an atraumatic grasper. There was some concern about the irregular surface of the left ovary. A decision was made to proceed with removal of the left tube and ovary. The utero-ovarian ligament was grasped with an atraumatic grasper. The ovary was somewhat adhesed to the pelvic sidewall and bowel. Dr. Cisneros was consulted. Adhesiolysis was performed using the PlasmaKinetic and Endo ruddy. Hemostasis was achieved. The infundibulopelvic ligament on the left side was cauterized and cut the PlasmaKinetic. The utero-ovarian vessels were cauterized and cut with PlasmaKinetic. The left tube and ovary were also placed into the anterior cul-de-sac. A 3 cm incision was made above the pubic symphysis and a 12 mm trocar was placed. The 12 mm trocar was removed. The incision was extended bluntly with a Florencia. An endobag was placed into the peritoneal cavity. Both tubes and ovary were placed into the bag. The right ovary with standing end on end. The bag was removed through the lower incision with care to not spill. The pelvis and abdomen were examined. There was no studding. The liver was normal. The appendix was normal. The instruments were removed from the abdomen. The CO2 was allowed to escape. The suprapubic incision was closed on the fascia with 0 Vicryl in a running fashion. The subcutaneous layer was irrigated with warm normal saline. 3 simple interrupted sutures were placed in the subcutaneous layer to reapproximate. All of the incisions were closed with 4 0 undyed Vicryl in a subcuticular fashion. The Zumi uterine manipulator was removed from the uterus. Sponge, lap, and instrument counts were correct x2. The patient tolerated the procedure well, and was taken to PACU in stable condition. Complications: none Post-operative Condition: stable Disposition: Acute Care
== END 2018-02-08 13:15 | disposition home or self-care (01) ==
LOC: ED 12:06 → AC 13:14
PROVIDERS: Admitting Provider Obstetrics & Gynecology; Emergency Provider Emergency Medicine; Family Provider Family Medicine; PCP Family Medicine; Visit Provider Obstetrics & Gynecology
PROC: 0UB24ZZ Excision of Bilateral Ovaries, Percutaneous Endoscopic Approach (ICD-10-PCS; CPT 58662; principal; 2018-02-07 11:45)
DX: C56.2 Malignant neoplasm of left ovary (principal); N83.511 Torsion of right ovary and ovarian pedicle; N83.201 Unspecified ovarian cyst, right side; N94.89 Other specified conditions associated with female genital organs and menstrual cycle
CPT/HCPCS: 58661; 36415; 36591; 74022; 74177; 76830; 76856; 80053; 83690; 85025; 86304; 86305; 96361; 96374; 96375; 96376; 99284; 99285; G0378; J0330; J0690; J1100; J1170; J1885; J2175; J2250; J2405; J2704; J2765; J3010; J7121; Q9967

== ENCOUNTER → 2018-02-17 16:11 | Outpatient (CLI) | payer BC, SELFPAY ==
[2018-02-07 15:48] VITALS: BMI 23.3
--- NOTE | 2018-02-17 16:13 | DI.CT.S_ITS ---
PROCEDURE: CT CHEST W CON INDICATIONS: Left ovarian carcinoma TECHNIQUE: After the administration of intravenous contrast, 5 mm thick sections acquired from the pulmonary apices to the posterior costophrenic angles. 7 mm thick coronal and sagittal MIP reformats were acquired. For radiation dose reduction, the following was used: automated exposure control, adjustment of mA and/or kV according to patient size. COMPARISON: [facility], CT, CT ABDOMEN PELVIS W CON, 02/07/2018, 10:47. [facility], CR, XR ACUTE ABDOMEN SERIES, 02/07/2018, 9:54. FINDINGS: Image quality: Excellent. Lungs and pleura: No acute air space opacities. No pleural effusions or pneumothorax. Central and peripheral airways are patent and normal in caliber. Mediastinum: Heart size is normal. No pericardial effusion. No mediastinal or hilar adenopathy by size criteria. Thoracic aorta and central pulmonary arteries are normal in size. Esophagus is normal in caliber. No hiatal hernia. Bones and chest wall: No suspicious bony lesions. No vertebral body compression fractures. No axillary or supraclavicular adenopathy by size criteria. Thyroid gland is normal except for a tiny hypodense nodule in the inferior pole of the left lobe.. Abdomen: Visualized upper abdominal solid organs appear normal. Upper abdominal bowel loops are normal in caliber. IMPRESSION: 1. No acute cardiopulmonary abnormality. No evidence of metastatic disease. 2. Tiny thyroid nodule lower pole left lobe. Dictated by: Po Hernandez M.D. on 02/17/2018 at 16:57 Approved by: Po Hernandez M.D. on 02/17/2018 at 17:01
== END ==
PROVIDERS: Family Provider Family Medicine; PCP Family Medicine; Visit Provider Obstetrics & Gynecology
DX: C56.2 Malignant neoplasm of left ovary (principal)
CPT/HCPCS: 71260; Q9967

== ENCOUNTER → 2018-02-26 07:44 | Outpatient (CLI) | payer BC, SELFPAY ==
[2018-02-07 15:48] VITALS: BMI 23.3
--- NOTE | 2018-02-26 07:45 | DI.US.S_ITS ---
PROCEDURE: US THYROID INDICATIONS: NODULE TECHNIQUE: Real-time scanning was performed of the thyroid gland, with image documentation. COMPARISON: [facility], CT, CT CHEST W CON, 02/17/2018, 16:20. FINDINGS: Right: Thyroid lobe measures 4.3 x 1.3 x 1.3 cm, and is homogeneous in echotexture. Left: Thyroid lobe measures 3.9 x 1.4 x 1.5 cm, and is homogenous in echotexture. Isthmus: 1.4 mm thick. Nodule number: 1 Location: Right mid Size: 0.5 x 0.2 x 0.4 cm. Composition: Solid Echogenicity: Isoechoic Shape: wider than tall. Margins: Smooth Echogenic foci: None Total points: 3 ACR TI-RADS category: Mildly suspicious IMPRESSION: Mildly suspicious mid right thyroid nodule. Recommend followup as below. ACR TI-RADS definitions and recommendations: TI-RADS 1 (benign): 0 points. FNA not needed. TI-RADS 2 (not suspicious): 2 points. FNA not needed. TI-RADS 3 (mildly suspicious): 3 points. * FNA if 2.5 cm or larger, follow up if 1.5 cm or larger (at 1, 3, and 5 years). TI-RADS 4 (moderately suspicious): 4-6 points. * FNA if 1.5 cm or larger, follow up if 1 cm or larger (at 1, 2, 3, and 5 years). TI-RADS 5 (highly suspicious): 7 points or more. * FNA if 1 cm or larger, follow up if 0.5 cm or larger (every year for 5 years). Dictated by: Doc Hernandez [facility] Interpreted: Derick Gusman MD on 02/26/2018 at 9:52 Approved by: Derick Gusman M.D. on 02/26/2018 at 11:00
== END ==
PROVIDERS: PCP Family Medicine; Visit Provider Obstetrics & Gynecology
DX: E04.1 Nontoxic single thyroid nodule (principal)
CPT/HCPCS: 76536

== ENCOUNTER → 2018-03-01 12:33 | Outpatient (CLI) | payer BC, SELFPAY ==
[2018-02-07 15:48] VITALS: BMI 23.3
[2018-03-01 12:51] LABS: Add Manual Diff / Slide Review NO; Basophils Percent Auto 0.9 % (0-2); Eosinophils Percent Auto 1.7 % (2-4); Hematocrit 37.5 % (36-46); Hemoglobin 12.7 g/dL (12.0-16.0); Lymphocytes Percent Auto 25.3 % (25-40); Mean Corpuscular HGB Conc 33.9 % (30-36); Mean Corpuscular Volume 91.5 fL (80-100); Monocytes Percent Auto 5.2 % (3-14); Neutrophils Absolute Auto 4500 /uL (3000-5900); Neutrophils Percent Auto 66.9 % (50-75); Platelet Count 294 X10^3/uL (150-400); Red Cell Distribution Width 12.9 % (11.6-14.8); White Blood Cell Count 6.7 X10^3/uL (4.5-11.0)
[2018-03-01 13:11] LABS: Erythrocyte Sedimentation Rate 11 MM/HR (0-20)
[2018-03-01 13:20] LABS: Alanine Aminotransferase 80 IU/L (9-52); Albumin 4.3 g/dL (3.5-5.0); Albumin Globulin Ratio 1.5 (1.0-2.8); Alkaline Phosphatase 74 U/L (38-126); Aspartate Aminotransferase 44 IU/L (14-36); BUN Creatinine Ratio 18.6 (6-22); Bilirubin Total 0.6 mg/dL (0.2-1.3); Blood Urea Nitrogen 13 mg/dL (7-17); C-Reactive Protein Quant 3.6 mg/dL (<1.0); Calcium 9.4 mg/dL (8.4-10.2); Carbon Dioxide 26 mmol/L (22-32); Chloride 106 mmol/L (98-107); Estimated Glomerular Filt Rate > 60.0 mL/min (>60); Globulin 2.9 g/dL (1.7-4.1); Glucose 85 mg/dL (70-100); HEMOLYSIS < 15 (0-50); Potassium 3.8 mmol/L (3.4-5.1); Sodium 142 mmol/L (137-145); Total Protein 7.2 g/dL (6.3-8.2)
[2018-03-01 16:52] LABS: Hep C Virus Ab w/Reflex Quant NEGATIVE s/c (NEGATIVE)
[2018-03-03 14:41] LABS: Hepatitis A Antibody IgM NONREACTIVE; Hepatitis Acute Panel Interp 0.01; Hepatitis B Core Antibody IgM NONREACTIVE; Hepatitis B Surface Antigen NONREACTIVE; Hepatitis C Antibody NONREACTIVE
== END ==
PROVIDERS: PCP Family Medicine; Visit Provider Family Medicine
DX: R21 Rash and other nonspecific skin eruption (principal); R10.9 Unspecified abdominal pain; R50.9 Fever, unspecified
CPT/HCPCS: 36415; 80053; 80074; 81001; 85025; 85651; 86140; 86803; 87086

== ENCOUNTER → 2018-05-08 10:37 | Outpatient (CLI) | payer BC, SELFPAY ==
[2018-02-07 15:48] VITALS: BMI 23.3
--- NOTE | 2018-05-08 | DI.US.S_ITS ---
PROCEDURE: US ABDOMEN LIMITED INDICATIONS: Abdominal mass after abdominal surgery, patient reports a hysterectomy and bilateral oophorectomy. The patient reports a right lower quadrant mass that reportedly is diminishing in size over time. TECHNIQUE: Real-time focused scanning was performed of the abdomen, with image documentation. COMPARISON: None. FINDINGS: At the right lower quadrant complex fluid filled structure is present measuring 4.5 x 6.2 x 4.9 cm, and at the left lower quadrant an additional fluid-filled structure can be seen measuring up to 2.1 x 2.2 x 6.2 cm. No internal blood flow is seen within these structures, and the appearance is suggestive of post procedural seromas. IMPRESSION: Bilateral lower abdominal/pelvic fluid filled structure is near each adnexa, measuring up to 6.2 cm at the right lower quadrant and 6.2 cm also at the left lower quadrant. Presumed postoperative seromas. Depending on the clinical status followup assessment with CT scanning could be performed, versus sequential physical exam correlation and/or ultrasound followup. Dictated by: Shun Lenz M.D. on 05/08/2018 at 13:11 Approved by: Shun Lenz M.D. on 05/08/2018 at 13:14
== END ==
PROVIDERS: PCP Family Medicine; Visit Provider Family Medicine
DX: R19.03 Right lower quadrant abdominal swelling, mass and lump (principal); R19.04 Left lower quadrant abdominal swelling, mass and lump
CPT/HCPCS: 76705

== ENCOUNTER → 2018-06-21 08:48 | Outpatient (CLI) | payer BC, SELFPAY ==
[2018-02-07 15:48] VITALS: BMI 23.3
--- NOTE | 2018-06-21 | DI.MG.S_ITS ---
BILATERAL DIGITAL SCREENING MAMMOGRAM 3D/2D WITH CAD: 06/21/2018 CLINICAL: Routine screening. Comparison is made to exams dated: 01/04/2017 mammogram, 03/21/2012 mammogram - [facility], and 10/06/2010 mammogram - [facility]. The tissue of both breasts is heterogeneously dense. This may lower the sensitivity of mammography. Current study was also evaluated with a Computer Aided Detection (CAD) system. No significant masses, calcifications, or other findings are seen in either breast. There has been no significant interval change. IMPRESSION: NEGATIVE There is no mammographic evidence of malignancy. A 1 year screening mammogram is recommended. This exam was interpreted at Station ID: [id number]. NOTE: For mammograms, a report in lay terms will be sent to the patient. Approximately 15% of breast malignancies will not be visualized mammographically. In the management of a palpable breast mass, a negative mammogram must not discourage biopsy of a clinically suspicious lesion. Electronically Signed By: Anne yang/oscar:06/24/2018 09:05:08 letter sent: Normal Exam ACR BI-RADS Category 1: Negative 3341F
== END ==
PROVIDERS: PCP Family Medicine; Visit Provider Family Medicine
DX: Z12.31 Encounter for screening mammogram for malignant neoplasm of breast (principal)
CPT/HCPCS: 77063; 77067

== ENCOUNTER → 2020-05-31 17:21 | Outpatient (CLI) | payer OTHER, SELFPAY ==
[2018-02-07 15:48] VITALS: BMI 23.3
--- NOTE | 2020-05-31 17:25 | DI.MG.S_ITS ---
BILATERAL DIGITAL SCREENING MAMMOGRAM 3D/2D WITH CAD: 05/31/2020 CLINICAL: Routine screening. Comparison is made to exams dated: 06/21/2018 mammogram, 01/04/2017 mammogram, and 03/21/2012 mammogram - [facility]. The tissue of both breasts is heterogeneously dense. This may lower the sensitivity of mammography. Current study was also evaluated with a Computer Aided Detection (CAD) system. No significant masses, calcifications, or other findings are seen in either breast. There has been no significant interval change. IMPRESSION: NEGATIVE There is no mammographic evidence of malignancy. A 1 year screening mammogram is recommended. This exam was interpreted at Station ID: [id number]. NOTE: For mammograms, a report in lay terms will be sent to the patient. Approximately 15% of breast malignancies will not be visualized mammographically. In the management of a palpable breast mass, a negative mammogram must not discourage biopsy of a clinically suspicious lesion. Electronically Signed By: Refugio Mckeon M.D., jr/oscar:06/01/2020 08:21:06 letter sent: Normal Exam ACR BI-RADS Category 1: Negative [id number]
== END ==
PROVIDERS: PCP Family Medicine; Referring Provider Family Medicine; Visit Provider Family Medicine
DX: Z12.31 Encounter for screening mammogram for malignant neoplasm of breast (principal)
CPT/HCPCS: 77063; 77067

== ENCOUNTER → 2021-06-01 17:05 | Outpatient (CLI) | payer OTHER, SELFPAY ==
[2018-02-07 15:48] VITALS: BMI 23.3
--- NOTE | 2021-06-01 17:08 | DI.RAD.S_ITS ---
PROCEDURE: XR TIBIA FUBULA RT 2V INDICATIONS: PAIN IN RIGHT LEG TECHNIQUE: 2 views of the tibia and fibula were acquired. COMPARISON: None. FINDINGS: Bones: No fractures or dislocations. No suspicious bony lesions. Soft tissues: No suspicious soft tissue calcifications or masses. IMPRESSION: No fracture. No osseous lesion. If symptoms and/or clinical suspicion for pathology persists, further assessment with repeat radiographs (7-10 days) or advanced imaging (e.g. CT, MRI or bone scan) should be considered. Dictated by: Lin Mckeon MD, PhD on 06/02/2021 at 10:41 Approved by: Lin Mckeon MD, PhD on 06/02/2021 at 10:42
== END ==
PROVIDERS: PCP Family Medicine; Referring Provider Family Medicine; Visit Provider Family Medicine
DX: M79.604 Pain in right leg (principal)
CPT/HCPCS: 73590

== ENCOUNTER → 2021-09-27 17:07 | Outpatient (ROUT) | payer OTHER, SELFPAY ==
[2018-02-07 15:48] VITALS: BMI 23.3
[2021-09-27 18:05] LABS: COVID-19 CEPHEID PCR (VTM/NP) Negative (Negative)
== END ==
PROVIDERS: PCP Family Medicine; Visit Provider Family Medicine
DX: Z20.822 Contact with and (suspected) exposure to COVID-19 (principal)
CPT/HCPCS: U0003

== ENCOUNTER 2021-11-04 16:23 | Emergency (ER) | payer OTHER, SELFPAY ==
[2018-02-07 15:48] VITALS: BMI 23.3
[2021-11-04] VITALS (10 sets, daily range): BP systolic 139–179; BP diastolic 66–109; PULSE 59–87; RESP 14–24; TEMP 36.8; O2SAT 96–98; BMI 23.3
--- NOTE | 2021-11-04 16:30 | DI.RAD.S_ITS ---
PROCEDURE: XR CHEST 1V INDICATIONS: chest pain TECHNIQUE: One view of the chest was acquired. COMPARISON: None. FINDINGS: Surgical changes and devices: None. Lungs and pleura: Lungs are clear. No pleural effusions or pneumothorax. Mediastinum: Mediastinal contours appear normal. Heart size is normal. Bones and chest wall: No suspicious bony lesions. Overlying soft tissues appear unremarkable. IMPRESSION: No evidence acute pulmonary process. Dictated by: Bill Crawford M.D. on 11/04/2021 at 16:17 Approved by: Bill Crawford M.D. on 11/04/2021 at 16:17
[2021-11-04 17:08] LABS: Add Manual Diff / Slide Review NO; Basophils Absolute Auto 100 /uL (0-100); Eosinophils Absolute Auto 100 /uL (0-450); Eosinophils Percent Auto 2.2 % (2-4); Hematocrit 40.6 % (36-46); Hemoglobin 13.8 g/dL (12.0-16.0); Lymphocytes Absolute Auto 1600 /uL (1100-4500); Lymphocytes Percent Auto 26.5 % (25-40); Mean Corpuscular Hemoglobin 30.3 PG (26-34); Monocytes Absolute Auto 300 /uL (0-900); Monocytes Percent Auto 5.1 % (3-14); Neutrophils Absolute Auto 3900 /uL (1500-7000); Neutrophils Percent Auto 65.2 % (50-75); Platelet Count 266 X10^3/uL (150-400); Red Blood Cell Count 4.57 X10^6/uL (4.0-5.2); Red Cell Distribution Width 13.2 % (11.6-14.8)
[2021-11-04 17:15] LABS: Alanine Aminotransferase 74 IU/L (<35); Albumin 4.6 g/dL (3.5-5.0); Albumin Globulin Ratio 1.6 (1.0-2.8); Alkaline Phosphatase 88 U/L (38-126); Aspartate Aminotransferase 42 IU/L (14-36); BUN Creatinine Ratio 15.4 (6-22); Bilirubin Total 0.3 mg/dL (0.2-1.3); Blood Urea Nitrogen 14 mg/dL (7-17); Calcium 9.8 mg/dL (8.4-10.2); Carbon Dioxide 26 mmol/L (22-32); Chloride 108 mmol/L (98-107); Creatine Kinase 154 U/L (30-135); Estimated Glomerular Filt Rate > 60.0 mL/min (>60); Globulin 2.8 g/dL (1.7-4.1); Glucose 116 mg/dL (80-110); HEMOLYSIS < 15 (0-50); Lipase 237 U/L (23-300); Magnesium 2.1 mg/dL (1.6-2.3); Potassium 3.9 mmol/L (3.4-5.1); Sodium 142 mmol/L (137-145); Total Protein 7.4 g/dL (6.3-8.2)
[2021-11-04 17:26] LABS: Troponin I < 0.012 ng/mL (0.01-0.034)
[2021-11-04 17:30] LABS: CKMB % Relative Index 0.7 % (1.5-5.0); Creatine Kinase MB 1.09 ng/mL (<2.37)
--- NOTE | 2021-11-04 17:40 | PC.NURSE ---
Pt reports ESTRADA x 3 days, sleep deprived x 4 days, midsternal CP x 2 days feels midsternal pressure/squeeze with palpitations . Pt had colonoscopy yesterday, reports taking sumatriptan 6x in the past 72 hrs for ESTRADA. States hx of ESTRADA.
--- NOTE | 2021-11-04 18:15 | ED_ITS ---
HPI - Chest Pain General Chief Complaint: Chest Pain Stated Complaint: Thinks Heart Attack Time Seen by Provider: 11/04/21 17:56 Source: patient and family Mode of arrival: Ambulatory Limitations: no limitations History of Present Illness HPI narrative: Patient is a 61-year-old female. Has frequent migraine headaches. Is here for evaluation of chest discomfort. She states that the chest discomfort/pressure started a couple days ago. It has been off and on since that time. Not worse with palpation or movement. She has had a headache during this time as well. She has had 6 sumatriptan over the past 2 days which is more than what she normally takes. She is currently not having a headache. No nausea vomiting. No problems breathing. No fevers. Related Data Home Medications Medication Instructions Recorded Confirmed zolpidem 10 mg tablet (Ambien) 0.5 tab PO PRN PRN 02/07/18 02/07/18 sumatriptan succinate 100 mg tablet 100 mg PO 11/04/21 Allergies Allergy/AdvReac Type Severity Reaction Status Date / Time neomycin Allergy Mild Rash Verified 11/04/21 16:34 Sulfa (Sulfonamide Allergy Mild Rash Verified 11/04/21 16:34 Antibiotics) amoxicillin [AMOXICILLIN] Allergy Unknown Rash Verified 11/04/21 16:34 Review of Systems Review of Systems ROS Unobtainable: All systems reviewed & are unremarkable except as noted in HPI and below Patient History Medical History Diverticulitis large intestine Surgical History (Updated 02/09/18 @ 12:26 by Jacque Jose MD) H/O dilation and curettage History of tonsillectomy Social History household members: spouse Smoking Status: Never smoker alcohol intake: current Smoking Status: Never smoker alcohol intake frequency: a few times a week Substance Use Type: does not use Exam Initial Vital Signs Initial Vital Signs: Vital Signs Temperature 98.3 F 11/04/21 16:30 Pulse Rate 87 11/04/21 16:30 Respiratory Rate 24 11/04/21 16:30 Blood Pressure 179/109 H 11/04/21 16:30 Pulse Oximetry 98 11/04/21 16:30 Const General: cooperative, healthy appearing, comfortable and well developed HENMT Head: normal to inspection and normocephalic Resp Effort & Inspection: normal respiratory effort Auscultation: clear to auscultation bilaterally Cardio Rate: regular rate Rhythm: regular rhythm GI Inspection: normal to inspection Palpation: soft and No tender Skin General: no rashes or lesions noted Neuro General: patient alert, patient awake, patient oriented x3 and moves all extremities Extrem General: normal to inspection and capillary refill normal Psych Appearance: grossly normal and well kempt Scores HEART Score Heart Score history: Slightly Suspicious Heart Score EKG: Normal Heart Score Age: 45-64 years old Heart Score risk factors: No known risk factors Heart Score troponin: < or = to normal limit Heart Score Total: 1 Course Orders Ordered: ED Orders 11/04/21 16:30 XR chest 1V Stat EKG-12 Lead Stat 11/04/21 16:50 Complete Blood Count AUTO DIFF Stat Comprehensive Metabolic Panel Stat Lipase Stat Magnesium Stat Troponin & CK Cardiac Panel Stat 11/04/21 19:15 Troponin I Stat Vital Signs Vital signs: Vital Signs - 8 hr 11/04/21 17:29 11/04/21 17:30 11/04/21 17:35 Pulse Rate 71 74 70 Respiratory Rate 19 Blood Pressure 154/84 H Pulse Oximetry 97 97 97 11/04/21 18:00 11/04/21 19:17 11/04/21 19:18 Pulse Rate 61 61 60 Respiratory Rate 24 14 Blood Pressure 139/79 Pulse Oximetry 96 97 97 11/04/21 19:30 11/04/21 20:00 11/04/21 20:01 Pulse Rate 71 66 59 L Respiratory Rate 21 15 19 Blood Pressure 146/92 H 141/66 H Pulse Oximetry 97 97 97 MDM - Chest Pain Lab Data Attestation: I reviewed the patient's lab results. Result diagrams: 11/04/21 16:50 11/04/21 16:50 Labs: Lab Results 11/04/21 11/04/21 11/04/21 Range/Units 16:50 16:50 19:15 WBC 6.0 (4.5-11.0) X10^3/uL RBC 4.57 (4.0-5.2) X10^6/uL Hgb 13.8 (12.0-16.0) g/dL Hct 40.6 (36-46) % MCV 89.0 (80-100) fL MCH 30.3 (26-34) PG MCHC 34.0 (30-36) % RDW 13.2 (11.6-14.8) % Plt Count 266 (150-400) X10^3/uL Neut % (Auto) 65.2 (50-75) % Lymph % (Auto) 26.5 (25-40) % [place] % (Auto) 5.1 (3-14) % Eos % (Auto) 2.2 (2-4) % Baso % (Auto) 1.0 (0-2) % Neut # (Auto) 3900 (1761-1978) /uL Lymph # (Auto) 1600 (1977-9911) /uL [place] # (Auto) 300 (0-900) /uL Eos # (Auto) 100 (0-450) /uL Baso # (Auto) 100 (0-100) /uL Sodium 142 (137-145) mmol/L Potassium 3.9 (3.4-5.1) mmol/L Chloride 108 H (98-107) mmol/L Carbon Dioxide 26 (22-32) mmol/L BUN 14 (7-17) mg/dL Creatinine 0.91 (0.52-1.04) mg/dL Estimated GFR > 60.0 (>60) mL/min BUN/Creatinine Ratio 15.4 (6-22) Glucose 116 H (80-110) mg/dL Calcium 9.8 (8.4-10.2) mg/dL Magnesium 2.1 (1.6-2.3) mg/dL Total Bilirubin 0.3 (0.2-1.3) mg/dL AST 42 H (14-36) IU/L ALT 74 H (<35) IU/L Alkaline Phosphatase 88 (38-126) U/L Total Creatine Kinase 154 H (30-135) U/L CK-MB (CK-2) 1.09 (<2.37) ng/mL CK-MB (CK-2) Rel Index 0.7 L (1.5-5.0) % Troponin I < 0.012 < 0.012 (0.01-0.034) ng/mL Total Protein 7.4 (6.3-8.2) g/dL Albumin 4.6 (3.5-5.0) g/dL Globulin 2.8 (1.7-4.1) g/dL Albumin/Globulin Ratio 1.6 (1.0-2.8) Lipase 237 (23-300) U/L Imaging Data Chest x-ray: Radiologist's Impression: [address] [id number] XRay Report Signed Patient: Mary Ann Parada MR#: [id number] : 1960 Acct:[id number] Age/Sex: 61 / F Date of Service: 11/04/21 Loc: ED Accession Number: [id number] ?? Procedure: XR chest 1V Ordering Provider: Elise Zhong D.O. PROCEDURE:? XR CHEST 1V ? INDICATIONS:? chest pain ? TECHNIQUE:? One view of the chest was acquired.? ? COMPARISON:? None. ? FINDINGS:? ? Surgical changes and devices:? None.? ? Lungs and pleura:? Lungs are clear.? No pleural effusions or pneumothorax.? ? Mediastinum:? Mediastinal contours appear normal.? Heart size is normal.? ? Bones and chest wall:? No suspicious bony lesions.? Overlying soft tissues appear unremarkable.? ? IMPRESSION:? No evidence acute pulmonary process. ? ? ? Dictated by: Bill Crawford M.D. on 11/04/2021 at 16:17 ? ? Approved by: Bill Crawford M.D. on 11/04/2021 at 16:17?? ECG Data Attestation: I personally reviewed and interpreted this ECG as follows: Interpretation: Sinus rhythm Ventricular rate is 73 Left axis deviation Normal QRS Normal QTC No ST T wave changes MDM Narrative Medical decision making narrative: Chest x-ray is unremarkable, EKG is unremarkable, low risk heart score. Troponins negative x2. Had a discussion with the patient regarding her symptoms we did discuss the lack of a definitive etiology. Informed her that she does need to talk with her primary doctor about a follow-up to discuss stress testin g. Patient was given return precautions. She expressed understanding and agreement. Discharge Plan Departure Patient Disposition: Home Clinical Impression: Atypical chest pain, Migraine Instructions: DI for Atypical Chest Pain Activity Restrictions/Additional Instructions: I do recommend that you contact your primary doctor to discuss the indications for a stress test. Continue to take all of your medications as directed. Return to the emergency department for any new or worsening symptoms. Prescriptions: No Action zolpidem [Ambien] 10 mg Tablet 0.5 tab PO PRN PRN (Reason: Insomnia) 0RF sumatriptan succinate 100 mg tablet 100 mg PO 0RF Referrals: Zahira Denny MD [Primary Care Provider] -
[2021-11-04 19:53] LABS: Troponin I < 0.012 ng/mL (0.01-0.034)
== END 2021-11-04 20:32 | disposition home or self-care (01) ==
PROVIDERS: Emergency Medicine; Emergency Provider Emergency Medicine; PCP Family Medicine
DX: R07.89 Other chest pain (principal); G43.909 Migraine, unspecified, not intractable, without status migrainosus
CPT/HCPCS: 36415; 71045; 80053; 82550; 82553; 83690; 83735; 84484; 85025; 93005; 99284

== ENCOUNTER → 2021-11-28 17:08 | Outpatient (CLI) | payer OTHER, SELFPAY ==
[2018-02-07 15:48] VITALS: BMI 23.3
--- NOTE | 2021-11-28 | DI.MRI.S_ITS ---
PROCEDURE: MR STROKE Pre- and post-contrast brain MRI, non-contrast brain MR angiogram, pre- and postcontrast neck MR angiogram INDICATIONS: TIA TECHNIQUE: Brain: Noncontrast axial T1 spin echo, axial T2 fast spin echo, sagittal and axial FLAIR, coronal T2 fast spin echo, axial gradient echo, axial diffusion and ADC through the brain. After the administration of contrast, axial 3D VIBE of the cranial vasculature and brain. Brain MRA: Non-contrast 3-D time of flight MR angiogram, with multiple xmbolck-vhlwvqmdt-ugqjwqilfa (MIP) reformats performed. Neck MRA: Axial and sagittal TruFISP through the neck. Coronal dynamic MR angiogram during administration of contrast in the arterial and venous phases, with 3-dimenstional frazjpv-uzvhjwmbo-uesibghskf (MIP) reformats constructed from subtraction images. COMPARISON: [facility], , MRI HEAD W/O CONTRAST, 12/05/2005, 7:56. FINDINGS: Image quality: Diagnostic, with motion artifact with signal dropout seen on the brain MR angiogram images within the skull base and within the region of the shoulders on the neck MR angiogram images. BRAIN: CSF spaces: Ventricles are normal in size and shape. Basal cisterns are patent. No extra-axial fluid collections. Brain: No intracranial bleeds or mass effects. Romo-white matter interface is normal. Diffusion weighted images show no acute ischemic insults. Brainstem appears normal. Normal intravascular flow voids are present. No abnormal intracranial enhancement. Mild brain parenchymal volume loss and chronic small vessel ischemic change can be seen. Skull and face: Calvarial marrow signal is normal. Orbits appear normal. Sinuses: Sinuses and mastoids are clear. BRAIN MR ANGIOGRAM: Anterior circulation: Intracranial internal carotid arteries are normal in size and enhancement. The flow within the paired anterior cerebral arteries is normal and symmetric. The flow within the middle cerebral arteries is normal and symmetric. The anterior communicating artery is seen. No stenoses, occlusions, or aneurysms. Posterior circulation: The visualized portions of the vertebral arteries demonstrate normal caliber, and join to form a normal appearing basilar artery. The flow within the posterior cerebral arteries is normal and symmetric. No stenoses, occlusions, or aneurysms. NECK MR ANGIOGRAM: Carotids: Great vessels demonstrate a conventional anatomy as they arise from the aortic arch. The origins of the common carotid arteries appear patent. The calibers and courses of both common carotid arteries are normal. The bifurcation regions appear normal bilaterally. The internal carotid arteries demonstrate normal course and caliber. Posterior circulation: The origins of the vertebral arteries appear patent. More superior portions of both vertebral arteries demonstrate normal course and caliber, and join to form a normal appearing basilar artery. Miscellaneous: Subclavian arteries appear patent. Pre-contrast images through the neck show no soft tissue abnormalities. IMPRESSION: BRAIN MRI: No findings of acute or subacute infarction can be seen. Mild brain parenchymal volume loss and chronic small vessel ischemic change can be seen. No masses or abnormal enhancement can be seen. BRAIN MR ANGIOGRAM: No significant intracranial arterial abnormality is seen. NECK MR ANGIOGRAM: Within the arteries of the neck, no hemodynamically significant stenosis can be seen. Dictated by: Sanjeev Hanley M.D. on 11/28/2021 at 17:16 Approved by: Sanjeev Hanley M.D. on 11/28/2021 at 17:19
== END ==
PROVIDERS: PCP Family Medicine; Referring Provider Family Medicine; Visit Provider Family Medicine
DX: G45.9 Transient cerebral ischemic attack, unspecified (principal)
CPT/HCPCS: 70548; 70553

== ENCOUNTER → 2021-12-13 08:13 | Outpatient (CLI) | payer OTHER, SELFPAY ==
[2018-02-07 15:48] VITALS: BMI 23.3
--- NOTE | 2021-12-13 | DI.MG.S_ITS ---
BILATERAL DIGITAL SCREENING MAMMOGRAM 3D/2D WITH CAD: 12/13/2021 CLINICAL: Routine screening. Comparison is made to exams dated: 05/31/2020 mammogram, 01/04/2017 mammogram, and 06/21/2018 mammogram - [facility]. The tissue of both breasts is heterogeneously dense. This may lower the sensitivity of mammography. Current study was also evaluated with a Computer Aided Detection (CAD) system. No significant masses, calcifications, or other findings are seen in either breast. There has been no significant interval change. IMPRESSION: NEGATIVE There is no mammographic evidence of malignancy. A 1 year screening mammogram is recommended. This exam was interpreted at Station ID: [id number]. NOTE: For mammograms, a report in lay terms will be sent to the patient. Approximately 15% of breast malignancies will not be visualized mammographically. In the management of a palpable breast mass, a negative mammogram must not discourage biopsy of a clinically suspicious lesion. Electronically Signed By: Jaden maurer/oscar:12/13/2021 08:52:24 letter sent: Normal Exam ACR BI-RADS Category 1: Negative [id number]
== END ==
PROVIDERS: PCP Family Medicine; Referring Provider Family Medicine; Visit Provider Family Medicine
DX: Z12.31 Encounter for screening mammogram for malignant neoplasm of breast (principal)
CPT/HCPCS: 77063; 77067

== ENCOUNTER → 2022-01-08 10:44 | Outpatient (CLI) | payer OTHER, SELFPAY ==
[2018-02-07 15:48] VITALS: BMI 23.3
[2022-01-08 13:31] LABS: COVID19 -Nasal RAPID Negative (Negative)
== END ==
PROVIDERS: PCP Family Medicine; Visit Provider Family Medicine Sleep Medicine
DX: Z20.822 Contact with and (suspected) exposure to COVID-19 (principal)
CPT/HCPCS: 87635; C9803

== ENCOUNTER → 2022-01-09 09:34 | Outpatient (CLI) | payer OTHER, SELFPAY ==
[2018-02-07 15:48] VITALS: BMI 23.3
--- NOTE | 2022-01-09 | DI.NM.S_ITS ---
PROCEDURE: NM TOMA PERF SPECT REST & STR Rest and exercise myocardial perfusion SPECT with gated imaging and ejection fraction RADIOPHARMACEUTICAL: 11.8 mCi Tc-99m sestamibi IV at rest and 24.1 mCi Tc-99m sestamibi IV at peak exercise. A 9-vyr-ncacbsqg was performed. INDICATIONS: Other chest pain TECHNIQUE: Radiopharmaceutical was injected at peak stress test, and also at rest. SPECT images were obtained. SPECT myocardial perfusion images were displayed in short axis, horizontal long axis, and vertical long axis views. Gated images were reviewed using Imperva software. COMPARISON: None. CARDIAC STRESS: A standard [place] treadmill exercise tolerance test was performed by the patient under the supervision of an attending staff. The patient exercised for 9 minutes and 23 seconds; 10.1 METS; functional aerobic impairment (ALMA ROSA) is -40%. Hemodynamic data: There is normal blood pressure and heart rate response to exercise stress. Patient achieved 92% of maximum predicted heart rate at peak exercise. Peak blood pressure 156/86. Symptoms: Patient denied chest pain during exercise. EK mm upsloping ST segment depression in aVL and V6, occasional PVC. FINDINGS: Raw data: There is good myocardial labeling by radiotracer. No significant motion artifacts. Vbdr-vx-udhfj ratio is 0.38 (normal is less than 0.38 for sestamibi tracer, and less than 0.50 for thallium tracer). Left ventricle function: Gated images demonstrate normal left ventricle wall thickening. No segmental wall motion abnormality. No transient ischemic dilation; TID is 0.82 (normal less than 1.3). The left ventricle resting end-diastolic volume is 67 mL. Left ventricle stress ejection fraction is 67%; normal values are above 45%. Myocardial perfusion: There is normal distribution of activity in the left and right ventricular myocardium. No fixed or reversible perfusion defects. IMPRESSION: No evidence of exercise-induced ischemia or scar on SPECT images. [address] segment upsloping depressions noted on ECG at peak exercise are not consistent with inducible ischemia. Very good exercise capacity. Normal blood pressure response to exercise. Dictated by: Amarilys Michelle D.O. on 01/09/2022 at 17:11 Approved by: Amarilys Michelle D.O. on 01/09/2022 at 17:17
== END ==
PROVIDERS: PCP Family Medicine; Referring Provider Family Medicine; Visit Provider Family Medicine
DX: R07.89 Other chest pain (principal)
CPT/HCPCS: 78452; 93017; A9502

== ENCOUNTER → 2022-03-20 10:14 | Outpatient (CLI) | payer OTHER, SELFPAY ==
[2018-02-07 15:48] VITALS: BMI 23.3
--- NOTE | 2022-03-20 10:15 | DI.RAD.S_ITS ---
PROCEDURE: XR FOOT LT MIN 3V INDICATIONS: LEFT ANKLE AND FOOT PAIN TECHNIQUE: <3> views of the foot were acquired. COMPARISON: None. FINDINGS: Bones: No fractures or dislocations. No suspicious bony lesions. Mild 1st MTP osteoarthritis. Soft tissues: No tibiotalar joint effusion. Achilles tendon appears normal. IMPRESSION: No fracture or dislocation. Mild 1st MTP osteoarthritis. Dictated by: Veto Velasquez M.D. on 03/20/2022 at 13:23 Approved by: Veto Velasquez M.D. on 03/20/2022 at 13:25
--- NOTE | 2022-03-20 10:15 | DI.RAD.S_ITS ---
PROCEDURE: XR ANKLE LT MIN 3V INDICATIONS: LEFT ANKLE AND FOOT PAIN TECHNIQUE: 3 views of the ankle were acquired. COMPARISON: None. FINDINGS: Bones: No fractures or dislocations. Ankle mortise is normally aligned. No suspicious bony lesions. Mild calcaneal Achilles enthesopathy. Soft tissues: No tibiotalar joint effusion. Achilles tendon appears normal. IMPRESSION: No fracture or dislocation. Dictated by: Veto Velasquez M.D. on 03/20/2022 at 13:21 Approved by: Veto Velasquez M.D. on 03/20/2022 at 13:23
== END ==
PROVIDERS: PCP Family Medicine; Referring Provider Family Medicine; Visit Provider Family Medicine
DX: M19.072 Primary osteoarthritis, left ankle and foot (principal); M79.672 Pain in left foot; M25.872 Other specified joint disorders, left ankle and foot
CPT/HCPCS: 73610; 73630

== ENCOUNTER → 2022-04-02 09:42 | Outpatient (CLI) | payer OTHER, SELFPAY ==
[2018-02-07 15:48] VITALS: BMI 23.3
== END ==
PROVIDERS: PCP Family Medicine; Referring Provider Family Medicine; Visit Provider Family Medicine
DX: Z13.820 Encounter for screening for osteoporosis (principal); Z78.0 Asymptomatic menopausal state; M81.0 Age-related osteoporosis without current pathological fracture; Z90.710 Acquired absence of both cervix and uterus
CPT/HCPCS: 77080

== ENCOUNTER → 2022-07-12 12:24 | Outpatient (CLI) | payer OTHER, SELFPAY ==
[2018-02-07 15:48] VITALS: BMI 23.3
[2022-07-12 13:38] LABS: Add Manual Diff / Slide Review NO; Basophils Absolute Auto 0 /uL (0-100); Basophils Percent Auto 0.7 % (0-2); Eosinophils Absolute Auto 200 /uL (0-450); Eosinophils Percent Auto 3.1 % (2-4); Hematocrit 39.1 % (36-46); Hemoglobin 13.4 g/dL (12.0-16.0); Lymphocytes Absolute Auto 1400 /uL (1100-4500); Lymphocytes Percent Auto 22.6 % (25-40); Mean Corpuscular HGB Conc 34.2 % (30-36); Mean Corpuscular Hemoglobin 30.7 PG (26-34); Mean Corpuscular Volume 89.7 fL (80-100); Monocytes Absolute Auto 400 /uL (0-900); Neutrophils Absolute Auto 4100 /uL (1500-7000); Neutrophils Percent Auto 67.6 % (50-75); Platelet Count 256 X10^3/uL (150-400); Red Blood Cell Count 4.36 X10^6/uL (4.0-5.2); Red Cell Distribution Width 13.5 % (11.6-14.8)
[2022-07-12 14:18] LABS: BUN Creatinine Ratio 19.5 (6-22); Blood Urea Nitrogen 16 mg/dL (7-17); Calcium 9.6 mg/dL (8.4-10.2); Carbon Dioxide 26 mmol/L (22-32); Chloride 104 mmol/L (98-107); Estimated Glomerular Filt Rate > 60 mL/min (>60); Glucose 98 mg/dL (80-110); HEMOLYSIS < 15 (0-50); Potassium 4.3 mmol/L (3.4-5.1); Sodium 140 mmol/L (137-145)
== END ==
PROVIDERS: PCP Family Medicine; Referring Provider Family Medicine; Visit Provider Family Medicine
DX: M81.0 Age-related osteoporosis without current pathological fracture (principal)
CPT/HCPCS: 36415; 80048; 85025

== ENCOUNTER → 2023-05-07 10:12 | Outpatient (CLI) | payer OTHER, SELFPAY ==
[2018-02-07 15:48] VITALS: BMI 23.3
--- NOTE | 2023-05-07 | DI.RAD.S_ITS ---
Bone Density Report Name: BONG HERNANDEZ Age: 63 Sex: Female Ethnicity: White Date of : 1960 Indication: postmenopausal osteoporosis; Referring Provider: SAWYER MAGANA Study: Bone densitometry was performed. Exam Date: May 07, 2023 Accession number: [id number] Bone Density: Region BMD T-score Z-score Classification AP Spine(L1-L4) 0.705 -3.1 -1.4 Osteoporosis Femoral Neck (Left) 0.630 -2.0 -0.5 Osteopenia Total Hip (Left) 0.812 -1.1 0.1 Osteopenia Femoral Neck (Right) 0.637 -1.9 -0.4 Osteopenia Total Hip (Right) 0.769 -1.4 -0.2 Osteopenia Total Hip Mean 0.791 -1.3 -0.1 Osteopenia World Health Organization criteria for BMD impression classify patients as: Normal (T-score at or above -1.0), Osteopenia (T-score between -1.0 and -2.5), or Osteoporosis (T-score at or below -2.5). 10-year Fracture Risk: FRAX not reported because: Some T-score for Spine Total or Hip Total or Femoral Neck at or below -2.5 Previous Exams: -- Region Exam Age BMD T-score BMD Change BMD Change Date g/cm2 vs Baseline vs Previous -- AP Spine (L1-L4) 05/07/2023 63 0.705 -3.1 0.020 (3.0%) 0.020 (3.0%) 04/02/2022 61 0.685 -3.3 Total Hip(Left) 05/07/2023 63 0.812 -1.1 0.062 (8.3%)* 0.062 (8.3%)* 04/02/2022 61 0.750 -1.6 Total Hip(Right) 05/07/2023 63 0.769 -1.4 0.034 (4.6%)* 0.034 (4.6%)* 04/02/2022 61 0.735 -1.7 -- *Denotes significance at 95% confidence level, LSC for AP Spine = 0.022 g/cm2, LSC for Total Hip = 0.027 g/cm2 Impression: The patient has osteoporosis, based on the Total Spine T-score. No significant bone loss was observed. Discussion: INCREASED RISK OF FRACTURE. BONE DENSITY IS UNDESIRABLY LOW AT ONE OR MORE SKELETAL SITES, CONSISTENT WITH POSTMENOPAUSAL OSTEOPOROSIS. This patient's lowest T-score meets the World Health Organization's (WHO) criteria for osteoporosis at one or more sites (T-score -2.5 or below). In untreated patients, the risk of osteoporotic fracture increases approximately two-fold for each 1.0 SD decrease in T-score. Low bone density is not the only risk factor for fracture; also consider factors such as patient's age, frailty or poor health, risk of falling, risk of injury, previous osteoporotic fracture, family history of osteoporosis, cigarette smoking, low body weight, etc. Not everyone with low bone mineral density has osteoporosis; osteomalacia and other metabolic bone disorders should also be considered. Patients who have osteoporosis should be evaluated for specific diseases and conditions (secondary causes) that may cause or contribute to bone loss. The [place] [employer] Clinical Endocrinologists (AACE) and National Osteoporosis Foundation (NOF) recommend pharmacologic intervention for all postmenopausal women whose T-score is in this range. The patient should follow a healthful lifestyle (good nutrition with adequate calcium and vitamin D, and appropriate weight-bearing exercise). Follow-Up: Consider a repeat BMD and Vertebral Fracture Assessment (VFA) exam in 2 years or sooner if medically necessary, to reassess this patient's status. Reported by: MONALISA GRESHAM M.D. on 05/07/2023 10:34:00 AM.
== END ==
PROVIDERS: PCP Family Medicine; Referring Provider Family Medicine; Visit Provider Family Medicine
DX: M81.0 Age-related osteoporosis without current pathological fracture (principal); Z79.83 Long term (current) use of bisphosphonates; Z78.0 Asymptomatic menopausal state; Z90.710 Acquired absence of both cervix and uterus
CPT/HCPCS: 77080

== ENCOUNTER → 2023-09-06 10:18 | Outpatient (CLI) | payer OTHER, SELFPAY ==
[2018-02-07 15:48] VITALS: BMI 23.3
--- NOTE | 2023-09-06 10:19 | DI.US.S_ITS ---
ULTRASOUND OF RIGHT BREAST AND AXILLA: 09/06/2023 CLINICAL: Focal right breast pain. Comparison is made to exams dated: 09/06/2023 mammogram, 12/13/2021 mammogram, 05/31/2020 mammogram, 06/21/2018 mammogram, 01/04/2017 mammogram, and 03/21/2012 mammogram - [facility]. Real-time ultrasound of the right breast axilla was performed. Romo scale images of the real-time examination were reviewed. No significant abnormalities were seen sonographically in the right axilla. IMPRESSION: NEGATIVE There is no sonographic evidence of malignancy. There is no abnormality seen in the right breast to correspond with the area of clinical concern in the axilla, however, clinical correlation and clinical followup are recommended. Return to annual mammogram screening schedule is recommended. This exam was interpreted at Station ID: [id number]. Electronically Signed By: Veto Velasquez M.D. lc/:09/06/2023 11:51:02 letter sent: Clinical Evaluation Ultrasound BI-RADS: 1 Negative
--- NOTE | 2023-09-06 10:19 | DI.MG.S_ITS ---
BILATERAL DIGITAL DIAGNOSTIC MAMMOGRAM 3D/2D: 09/06/2023 CLINICAL: Right axilla pain. Comparison is made to exams dated: 12/13/2021 mammogram, 05/31/2020 mammogram, and 06/21/2018 mammogram - [facility]. Both breasts are heterogeneously dense, which may obscure small masses (category c / 51-75% glandular tissue). No significant masses, calcifications, or other findings are seen in either breast. IMPRESSION: INCOMPLETE: NEEDS ADDITIONAL IMAGING EVALUATION There is no abnormality seen in the right breast to correspond with the area of clinical concern in the axilla, however, ultrasound is recommended. Based on the Tyrer Cuzick model (a risk assessment model) the patient's lifetime risk is 10.8% and her 10 year risk is 5.0%. According to the ACR, ACS, and NCCN guidelines, an annual breast MRI exam along with mammogram is recommended if the patient's lifetime risk is 20% or greater. This exam was interpreted at Station ID: [id number]. NOTE: For mammograms, a report in lay terms will be sent to the patient. Approximately 15% of breast malignancies will not be visualized mammographically. In the management of a palpable breast mass, a negative mammogram must not discourage biopsy of a clinically suspicious lesion. Electronically Signed By: Veto Velasquez M.D. lc/:09/06/2023 11:49:54 ACR BI-RADS Category 0: Incomplete 3340F
== END ==
PROVIDERS: PCP Family Medicine; Referring Provider Family Medicine; Visit Provider Family Medicine
DX: N64.4 Mastodynia (principal); R92.2 Inconclusive mammogram; R92.333 Mammographic heterogeneous density, bilateral breasts
CPT/HCPCS: 76642; 77066; G0279